=== PATIENT | male | born 1990 | race Caucasian/White ===

== ENCOUNTER 2019-03-20 01:08 | Emergency (ER) | payer MEDICAID, SELFPAY ==
[~2019-03-20] VITALS: Ht 182.9 cm; Wt 70.5 kg
[2019-03-20] MEDS ORDERED: NS 1,000 ML IV ONE (01:45)
[2019-03-20 01:53] LABS: BASO # 0.1 10^3/uL (0.0-0.2); BASO % 0.6 % (0.0-1.0); EOS % 0.3 % (0.0-3.0); HEMATOCRIT 41.2 % (42.0-52.0); HEMOGLOBIN 14.5 g/dl (13.5-17.5); LYMPH # 1.8 10^3/uL (1.5-4.5); LYMPH % 20.3 % (24.0-44.0); MEAN CORPUSCULAR HEMOGLOBIN 32.2 pg (27.0-33.0); MEAN CORPUSCULAR HGB CONC 35.2 g/dl (32.0-36.5); MEAN CORPUSCULAR VOLUME 91.6 fl (80.0-96.0); MONO # 0.8 10^3/uL (0.0-0.8); MONO % 9.5 % (0.0-5.0); NEUTROPHILS # 6.1 10^3/uL (1.8-7.7); NEUTROPHILS % 69.1 % (36.0-66.0); PLATELET COUNT, AUTOMATED 181 10^3/uL (150-450); WHITE BLOOD COUNT 8.8 10^3/uL (4.0-10.0)
[2019-03-20 02:20] LABS: ALBUMIN 4.5 GM/DL (3.2-5.2); ALT/SGPT 17 U/L (12-78); BILIRUBIN,DIRECT 0.3 MG/DL (0.0-0.2); BILIRUBIN,TOTAL 1.3 MG/DL (0.2-1.0); BLOOD UREA NITROGEN 15 MG/DL (7-18); CALCIUM LEVEL 9.1 MG/DL (8.5-10.1); CARBON DIOXIDE LEVEL 28 MEQ/L (21-32); CHLORIDE LEVEL 104 MEQ/L (98-107); CREATININE FOR GFR 0.94 MG/DL (0.70-1.30); GLOMERULAR FILTRATION RATE > 60.0 (>60); GLUCOSE, FASTING 85 MG/DL (70-100); LIPASE 99 U/L (73-393); POTASSIUM SERUM 4.2 MEQ/L (3.5-5.1); SODIUM LEVEL 138 MEQ/L (136-145); TOTAL PROTEIN 7.5 GM/DL (6.4-8.2)
[2019-03-20] MEDS ORDERED: METOCLOPRAMIDE INJ 10MG/2ML VIAL (J2765) IV ONE (04:45)
[2019-03-20] MEDS ORDERED: KETOROLAC 30 MG/ML VIAL (J1885) IV ONE (04:45)
--- NOTE | 2019-03-20 05:16 | REPVR ---
EXAM: CT Abdomen and Pelvis Without Contrast EXAM DATE/TIME: 03/20/2019 2:49 AM CLINICAL HISTORY: 28 years old, male; Abdominal pain; Flank; Right; Additional info: Flank pain TECHNIQUE: Imaging protocol: Axial computed tomography images of the abdomen and pelvis without contrast. Coronal and sagittal reformatted images were created and reviewed. Radiation optimization: All CT scans at this facility use at least one of these dose optimization techniques: automated exposure control; mA and/or kV adjustment per patient size (includes targeted exams where dose is matched to clinical indication); or iterative reconstruction. COMPARISON: No relevant prior studies available. Study limitations: Evaluation for mass, inflammatory change, including bowel wall/fold thickening, viscera, and vasculature, is compromised without any contrast. FINDINGS: LUNG BASES: No infiltrate or effusion. VASCULAR: Major vasculature is within normal limits for noncontrast evaluation. PERITONEAL : No free air or free fluid. GI: No hiatal hernia. The stomach contains ingested material and gas. The stomach is not sufficiently distended for complete diagnostic evaluation by this exam. A 1.6 cm noninflamed fundal gastric diverticulum is suspected. Nonspecific fluid-filled loops of small bowel. No asymmetry small bowel dilation to suggest obstruction. There appears to be slightly elevated fern-intestinal vascularity. Although nonspecific, mild gastroenteritis may be a possibility which could be correlated clinically. Evaluation for bowel wall and fold thickening is suboptimal without contrast. Small mesenteric lymph nodes are seen. Scattered fecal material and gas within portions of the colon and rectum. No pericolonic inflammatory stranding. No evidence of acute diverticulitis. The appendix does not appear inflamed. HEPATOBILIARY, PANCREAS, SPLEEN: Sagittal hepatic length is 17.6 cm. Hepatic attenuation is at the lower end of normal. No calcified gallstones. No pancreatic inflammation. Spleen not enlarged. ADRENALS, KIDNEYS, BLADDER, RETROPERITONEAL: Adrenals within normal limits. No hydronephrosis. Punctate nonobstructing bilateral renal calculi are noted. No perinephric stranding or fluid. Course of the distal ureters is not clearly identified but there are no suspicious calcifications seen. No calculi within the urinary bladder. No perivesical stranding. Punctate prostate calcification noted. The prostate does not appear enlarged. No bladder wall thickening. MUSCULOSKELETAL: Degenerative disc disease of the lower lumbar spine noted. Mild scoliosis. Tiny sclerotic bone lesions, likely bone islands. No acute fracture. IMPRESSION: Nonobstructive bilateral genitourinary calculi. No free air, free fluid or focal mesenteric inflammation. Nonspecific gastrointestinal findings discussed above, to be correlated clinically with the patient's symptoms. Other incidental findings and study limitations discussed above. Electronically signed by: Wil Copeland On 03/20/2019 05:15:50 AM
[2019-03-20] MEDS ORDERED: GASTROGRAFIN SOLUTION 30ML (Q9963) As Ordered ONE (05:54)
[2019-03-20] MEDS: GASTROGRAFIN SOLUTION 30ML PO SCH ×2 (05:59→07:05)
[2019-03-20] MEDS ORDERED: ISOVUE-370 76% 100ML VIAL (Q9967) As Ordered ONE (07:19)
[2019-03-20] MEDS ORDERED: REGL10TA6 PO (07:41)
[2019-03-20] MEDS ORDERED: KETO10TAB PO (07:41)
--- NOTE | 2019-03-20 08:06 | REP ---
Clinical: Right lower quadrant pain. Hematuria. Technique: Axial contrast enhanced images from the lung bases to the pubic symphysis using oral (per protocol) and 100 ml Isovue 370 intravenous contrast material with coronal and sagittal re-formations. Findings: Lung bases are clear. Visualized heart and pericardium normal. Liver, spleen, pancreas, gallbladder, bilateral adrenal glands and kidneys are within normal limits. Small nonobstructing intrarenal calculi measure up to 2 mm without perinephric stranding, hydroureternephrosis, or obstructing ureteral calculi. Evaluation of the enteric system is without obstruction or acute inflammatory process. Appendix identified in the right lower quadrant measuring 5.6 mm maximal diameter without findings to suggest acute appendicitis by CT evaluation. Pelvis demonstrates collapsed normal bladder and age appropriate prostate/seminal vesicles. No free air. No free fluid. No adenopathy. Surrounding musculoskeletal structures are intact. Impression: 1. No acute abdominopelvic pathology appreciated. 2. Few small bilateral nonobstructing nephroliths. Electronically Signed by Adriano Wayne MD 03/20/2019 07:57 A
[2019-03-20 08:30] VITALS: BP 97/56
== END 2019-03-20 08:40 | disposition home or self-care (01) ==
LOC: M ED 01:08
DX: N20.0 Calculus of kidney (principal); R10.9 Unspecified abdominal pain; R31.9 Hematuria, unspecified; R11.0 Nausea; Z87.442 Personal history of urinary calculi; G43.909 Migraine, unspecified, not intractable, without status migrainosus; F17.220 Nicotine dependence, chewing tobacco, uncomplicated
CPT/HCPCS: 36415; 74176; 74177; 80048; 80076; 81001; 83690; 85025; 96361; 96374; 96375; 99284; J1885; J2765; Q9967